=== PATIENT | male | born 1970 | race Caucasian/White ===

== ENCOUNTER 2016-12-30 12:10 | Emergency (ER) | payer MEDICAID, OTHER ==
[~2016-12-30] VITALS: Ht 188 cm; Wt 127.0 kg
[~2016-12-30 12:10] MED LIST: Z.0.NO CURRENT MEDS
[2016-12-30 12:29] VITALS: BP 160/81; PULSE 82; RESP 16; TEMP 98.3; O2SAT 97
--- NOTE | 2016-12-30 13:32 | PD ---
HPI . Right leg pain Chief Complaint: Pain: Acute or Chronic Time Seen by Provider: 13:12 Travel History International Travel<30 days: No Contact w/Intl Traveler<30days: No Traveled to known affect area: No History of Present Illness HPI 46-year-old male patient presents emergency department for evaluation of right leg pain 2 weeks. Patient reports bulging pains in the right lower leg at times. The pain is predominant when ambulating. The patient denies any pain at this time. The pain originates behind the right knee and is throbbing in sensation when it is present. Patient has varicosities noted on the right lower leg. Patient states he has never had any varicosities behind his right knee. Patient denies any fevers, chills, malaise, chest pain, shortness of breath or lightheadedness. Patient became very concerned with the leg pain due to his [id number] being hospitalized recently for DVT and having to go on Coumadin. She wanted to make sure the leg pain wasn't related to a DVT. PFSH Past Medical History Medical History: Denies Significant Hx Diminished Hearing: No Immunizations Current: No Tetanus Vaccination: Unknown Influenza Vaccination: No Past Surgical History Surgical History: No Previous Surgery Social History Alcohol Use: Yes (12 plus daily) Tobacco Use: Yes (1/2 PPD) Substance Use: No Allergies-Medications (Allergen,Severity, Reaction): Coded Allergies: penicillin G (Unverified Allergy, Severe, Hives, 12/30/16) Reported Meds & Prescriptions Reported Meds & Active Scripts Active Review of Systems Except as stated in HPI: all other systems reviewed are Neg Physical Exam Narrative GENERAL: Well-nourished, well-developed 46-year-old male patient. In no acute distress. SKIN: Focused skin assessment warm/dry. HEAD: Normocephalic. Atraumatic. EYES: No scleral icterus. No injection or drainage. NECK: Supple, trachea midline. No JVD or lymphadenopathy. CARDIOVASCULAR: Regular rate and rhythm without murmurs, gallops, or rubs. Pedal pulses +2 bilaterally. Varicosity noted to right posterior knee. RESPIRATORY: Breath sounds equal bilaterally. No accessory muscle use. GASTROINTESTINAL: Abdomen soft, non-tender, nondistended. MUSCULOSKELETAL: No erythema, swelling noted in bilateral legs. No cyanosis, or edema. Full range of motion with flexion and extension and bilateral knees. BACK: Nontender without obvious deformity. No CVA tenderness. Data Data Last Documented VS Vital Signs Date Time Temp Pulse Resp B/P (MAP) Pulse Ox O2 Delivery O2 Flow Rate FiO2 12/30/16 12:29 98.3 82 16 160/81 (107) 97 MDM Medical Decision Making Medical Screen Exam Complete: Yes Emergency Medical Condition: Yes Differential Diagnosis Differential diagnoses include but not limited to varicosity, leg contusion, DVT , leg pain Narrative Course 46-year-old patient presents emergency department for evaluation of right-sided leg pain 2 weeks. Patient was concerned as his family members recently treated for DVT. There is no edema or erythema. Pedal pulses are palpable and equal bilaterally. Patient does not have a history of malignancy, recent travels, hormone therapy. Patient doesn't have any chest pain or shortness of breath. Pain is intermittent with ambulation. Patient does not report any varicosities behind his right knee however there is one present on exam. My suspicion for DVT is exceedingly low at this time. Based on patient's symptoms, clinical presentation, vital sign review and physical exam it is not necessary to admit the patient to the hospital or keep the patient in the emergency department for further evaluation. Patient will be discharged home. Diagnosis Primary Impression: Varicose vein of leg Referrals: Primary Care Physician Patient Instructions: General Instructions, Varicose Veins (DC) Additional Instructions: Please return to emergency department if your symptoms return or worsen. Follow up with your primary care provider. Use compression stockings, elevate legs when resting and may use ice for symptomatic pain control. Scripts No Active Prescriptions or Reported Meds Disposition: 01 DISCHARGE HOME Condition: Stable Aline Welch Dec 30, 2016 13:32
== END 2016-12-30 13:50 | disposition home or self-care (01) ==
LOC: PHEFT 12:10
DX: I83.91 Asymptomatic varicose veins of right lower extremity (principal); F17.200 Nicotine dependence, unspecified, uncomplicated; Z88.0 Allergy status to penicillin
CPT/HCPCS: 99281

== ENCOUNTER 2017-01-01 19:55 | Emergency (ER) | payer MEDICAID ==
[~2017-01-01] VITALS: Ht 188 cm; Wt 127.0 kg
[2017-01-01 19:57] VITALS: BP 159/90; PULSE 106; RESP 15; TEMP 100.4; O2SAT 96
== END 2017-01-01 20:25 | disposition left against medical advice (07) ==
LOC: NED 19:55
DX: S99.911A Unspecified injury of right ankle, initial encounter (principal); X58.XXXA Exposure to other specified factors, initial encounter
CPT/HCPCS: 99281

== ENCOUNTER 2017-05-30 11:26 | Emergency (ER) | payer MEDICAID ==
[~2017-05-30] VITALS: Ht 185.4 cm; Wt 130.3 kg
[2017-05-30 11:31] VITALS: BP 154/81; PULSE 87; RESP 18; TEMP 98.4; O2SAT 97
--- NOTE | 2017-05-30 11:45 | PD ---
HPI Chief Complaint: Complaint Time Seen by Provider: 11:37 Travel History International Travel<30 days: No Contact w/Intl Traveler<30days: No Traveled to known affect area: No History of Present Illness HPI This 47-year-old male says he has some burning with urination. He has not had any discharge. He says he had a urinary tract infection about 10 years ago. He has not had fever or chills. He says he feels a little weaker than usual the last few days. There is been no vomiting or diarrhea PFSH Past Medical History Diminished Hearing: No Immunizations Current: No Social History Alcohol Use: Yes (12 PACK DAILY) Tobacco Use: Yes (12PPD) Substance Use: No Allergies-Medications (Allergen,Severity, Reaction): Coded Allergies: penicillin G (Unverified Allergy, Severe, Hives, 05/30/17) Reported Meds & Prescriptions Reported Meds & Active Scripts Active Review of Systems General / Constitutional: No: Fever, Chills Eyes: No: Diploplia, Blurred Vision HENT: No: Headaches, Vertigo Cardiovascular: No: Chest Pain or Discomfort, Palpitations Respiratory: No: Cough, Shortness of Breath Gastrointestinal: No: Nausea Genitourinary: Positive: Dysuria, No: Pelvic Pain, Flank Pain Musculoskeletal: No: Myalgias, Arthralgias Skin: No Rash, No Itching Neurologic: Positive: Weakness Endocrine: No: Heat Intolerance, Cold Intolerance Hematologic/Lymphatic: No: Easy Bruising Physical Exam Narrative GENERAL: Well-developed male SKIN: Focused skin assessment warm/dry. HEAD: Atraumatic. Normocephalic. EYES: Pupils equal and round. No scleral icterus. No injection or drainage. ENT: No nasal bleeding or discharge. Mucous membranes pink and moist. NECK: Trachea midline. No JVD. CARDIOVASCULAR: Regular rate and rhythm. No murmur appreciated. RESPIRATORY: No accessory muscle use. Clear to auscultation. Breath sounds equal bilaterally. GASTROINTESTINAL: Abdomen soft, non-tender, nondistended. Hepatic and splenic margins not palpable. MUSCULOSKELETAL: No obvious deformities. No clubbing. No cyanosis. No edema. NEUROLOGICAL: Awake and alert. No obvious cranial nerve deficits. Motor grossly within normal limits. Normal speech. PSYCHIATRIC: Appropriate mood and affect; insight and judgment normal. Data Data Last Documented VS Vital Signs Date Time Temp Pulse Resp B/P (MAP) Pulse Ox O2 Delivery O2 Flow Rate FiO2 05/30/17 11:31 98.4 87 18 154/81 (105) 97 Orders Orders Urinalysis - C+S If Indicated (05/30/17 11:28) Gc And Chlamydia Pcr (05/30/17 12:23) Sodium Chloride 0.9% Flush (Ns Flush) (05/30/17 12:30) Urine Culture (05/30/17 12:23) Labs Laboratory Tests Test 05/30/17 12:05 Urine Collection Type CLEAN CATCH Urine Color YELLOW Urine Turbidity CLEAR Urine pH 5.5 Urine Specific [place] 1.020 Urine Protein NEG mg/dL Urine Glucose (UA) NEG mg/dL Urine Ketones NEG mg/dL Urine Occult Blood NEG Urine Nitrite NEG Urine Bilirubin NEG Urine Urobilinogen 0.2 MG/DL Urine Leukocyte Esterase SMALL Urine RBC 0-3 /hpf Urine WBC 9-14 /hpf Urine Squamous Epithelial Cells 0-5 /hpf Microscopic Urinalysis Comment CULT NOT INDICATED Urine Collection Time 12:05 [facility] Medical Decision Making Medical Screen Exam Complete: Yes Emergency Medical Condition: Yes Medical Record Reviewed: Yes Differential Diagnosis Differential includes UTI, prostatitis, Narrative Course Urinalysis shows 9-14 white cells Diagnosis Primary Impression: UTI (urinary tract infection) Scripts Sulfamethoxazole-Trimethoprim (Bactrim DS) 800-160 Mg Tab 1 TAB PO BID for Infection, #60 TAB 0 Refills Prov: Matheus Lewis MD 05/30/17 Disposition: 01 DISCHARGE HOME Condition: Stable Matheus Lewis MD May 30, 2017 11:45
[2017-05-30 12:15] LABS: BILIRUBIN, URINE NEG (NEG); BLOOD, URINE NEG (NEG); GLUCOSE,URINE NEG (NEG); KETONE, URINE NEG (NEG); NITRITE,URINE NEG (NEG); PH, URINE 5.5 (5.0-8.5); URINE COLOR YELLOW (YELLW/STRAW); URINE LEUKOCYTE ESTERASE SMALL (NEG)
[2017-05-30 12:20] LABS: RBC, URINE 0-3 /hpf (0-3); SQUAMOUS EPITHELIAL CELL URINE 0-5 /hpf (0-5)
[2017-05-30] MEDS ORDERED: BACT800T5 PO (12:30)
[2017-05-30] MEDS ORDERED: SODIUM CHLORIDE 0.9% FLUSH 10 ML FLUSH IVF PRN (12:30)
== END 2017-05-30 12:54 | disposition home or self-care (01) ==
LOC: PHED 11:26
DX: N39.0 Urinary tract infection, site not specified (principal); F17.210 Nicotine dependence, cigarettes, uncomplicated
CPT/HCPCS: 81001; 87086; 87491; 87591; 99283